=== PATIENT | female | born 1965 | race Two or more races ===

== ENCOUNTER 2024-11-08 09:42 | Emergency (ER) | payer BC, SELFPAY ==
[2024-11-08 09:43] VITALS: BMI 27.8
[2024-11-08 09:59] VITALS: BP 158/88; PULSE 73; RESP 18; TEMP 36.6; O2SAT 98
--- NOTE | 2024-11-08 10:09 | XR_ITS ---
Examination: CT brain head without contrast. 2-D sagittal coronal reconstructions Date and time of exam:November 08, 2024 1020 hours INDICATIONS: Right-sided headaches and dizziness today COMPARISON: July 06, 2020 CTDI: vol (mGy):45 DLP: (mGycm):858 Technique: Multiple CT axial sections of the brain have been obtained, 5 mm slice thickness. Contrast has not been administered. 2-D sagittal, coronal reconstructions have been obtained Low dose protocols were performed. One or more of the following dose reduction techniques were used; automated exposure control, adjustment of the mA and/or KV according to patient size, use of iterative reconstruction technique. Findings: No significant ventricular enlargement. Intra-axial or extra-axial hemorrhage density is not seen. No mass effect or midline shift Basal cisterns are not remarkable. Fourth ventricle is midline. Cranial vault intact. Impression: Negative for acute hemorrhage, mass effect or midline shift Advise, clinical correlation follow-up accordingly
--- NOTE | 2024-11-08 10:10 | PD.EDRME ---
Rapid Medical Screening Exam RME Arrival date/time: 11/08/24 09:42 59-year-old female with a history of hyperlipidemia presents to the emergency room with a chief complaint of a 10 out of 10 right-sided headache x 2 days I have greeted and performed a focused initial assessment of this patient. A comprehensive ED assessment and evaluation of the patient, analysis of all test results, and completion of the medical decision making process will be conducted by additional ED providers. Chief Complaint: Headache Time Seen by Provider: 11/08/24 09:58 Vital signs: Vital Signs Temperature 97.8 F 11/08/24 09:59 Pulse Rate 73 11/08/24 09:59 Respiratory Rate 18 11/08/24 09:59 Blood Pressure 158/88 H 11/08/24 09:59 Pulse Oximetry (%) 98 11/08/24 09:59 Oxygen Delivery Method Room Air 11/08/24 09:59 Vital signs reviewed by provider: Yes
[2024-11-08 11:01] LABS: Collection Type, Urine Clean Catch
[2024-11-08 11:16] LABS: Basophils # (Auto) 0.0 Thou/mm3 (0.0-0.2); Basophils % (Auto) 1 % (0-2.5); Eosinophils # (Auto) 0.1 Thou/mm3 (0.0-0.5); Eosinophils % (Auto) 1 % (0-10); Hematocrit 43.8 % (36.0-46.0); Hemoglobin 14.5 g/dL (12.0-16.0); Immature Granulocytes Auto 0.01 Thou/mm3 (0.00-0.00); Lymphocytes # (Auto) 1.9 Thou/mm3 (1.0-4.8); Lymphocytes % (Auto) 33 % (10-50); Mean Corpuscular HGB Conc 33.1 g/dl (31.0-37.0); Mean Corpuscular Hemoglobin 29.2 pg (25.0-35.0); Mean Corpuscular Volume 88 fL (80-100); Monocytes # (Auto) 0.2 Thou/mm3 (0.0-0.8); Monocytes % (Auto) 4 % (0-12); Neutrophils # (Auto) 3.6 Thou/mm3 (1.8-7.7); Neutrophils % (Auto) 61 % (37-80); Nucleated Red Blood Cell # 0.00 Thou/mm3 (0.00-0.00); Nucleated Red Blood Cell % 0 /100 WBC (0); Platelet Count 318 Thou/mm3 (140-440); RDW Standard Deviation 43.5 fL (36.4-46.3); Red Blood Count 4.96 Miln/mm3 (4.00-5.20); White Blood Count 5.8 Thou/mm3 (3.6-11.0)
[2024-11-08 11:23] LABS: Alanine Aminotransferase 10 U/L (10-49); Albumin, Serum 4.5 gm/dL (3.4-4.8); Albumin/Globulin Ratio 1.9 (1.2-2.2); Alkaline Phosphatase 61 U/L (46-116); Anion Gap 10 (7-16); Aspartate Amino Transferase 18 U/L (0-34); BUN/Creatinine Ratio 10 Ratio (12-20); Bilirubin,Total 0.6 mg/dL (0.3-1.2); Blood Urea Nitrogen 6 mg/dL (9-23); Calcium 9.6 mg/dL (8.3-10.6); Calcium (Corrected) 9.6 mg/dL (8.5-10.1); Carbon Dioxide 25.4 mMol/L (20.0-31.0); Chloride 108 mMol/L (98-107); Creatinine (Component) 0.6 mg/dL (0.6-1.3); Estimated Creatinine Clearance 94.3 mL/min (>60); Globulin 2.4 gm/dL (2.3-3.5); Glucose 98 mg/dL (74-106); Osmolality,Calculated 282 (275-295); Potassium 4.0 mMol/L (3.4-5.1); Sodium 143 mMol/L (136-145); Total Protein 6.9 gm/dL (5.7-8.2); eGFR > 60 See Note
[2024-11-08 11:24] LABS: Bilirubin,Urine Negative (Negative); Blood,Urine Trace (Negative); Clarity,Urine Clear (Clear/Hazy); Color,Urine Lt-Yellow (Lt Yel-Yel); Culture Indicated,Urine Not Indicated; Glucose, Urine Negative (Negative); Ketones,Urine Negative (Negative); Leukocyte Esterase,Urine Positive (Negative); Nitrite,Urine Negative (Negative); PH,Urine 6.0 (5.0-7.0); Protein,Urine Negative (Neg - Trace); RBC,Urine < 1 /hpf (0-3); Specific Gravity,Urine 1.014 (1.001-1.035); Squamous Epithelial Cell,Urine 1 /hpf (0-5); Urobilinogen,Urine Negative mg/dL (0.0-1.0); WBC,Urine 3 /hpf (0-5)
--- NOTE | 2024-11-08 12:14 | EDNOTE_ITS ---
<Statement entered by Flakita Mendoza MD - 11/08/24 14:39> As co-signing physician, I was present and available for consult prn. I concur with the plan and care as documented by the midlevel provider. ED General RME/HPI General Chief complaint: Headache Stated complaint: PERRY SINCE YESTERDAY, C/O PRESSURE IN HEAD Time Seen by Provider: 11/08/24 09:58 Arrival date/time: 11/08/24 09:42 CC: Right sided headache onset yesterday with mild improvement with Tylenol also admitting to facial pain with coldness on one side and heat on the other denies any blurred vision seeing spots shortness of breath difficulty breathing complaining of mild neck pain as well. No active vomiting. RME / HPI RME / HPI narrative: 11/08/24 09:42 59-year-old female with a history of hyperlipidemia presents to the emergency room with a chief complaint of a 10 out of 10 right-sided headache x 2 days I have greeted and performed a focused initial assessment of this patient. A comprehensive ED assessment and evaluation of the patient, analysis of all test results, and completion of the medical decision making process will be conducted by additional ED providers. Related Data Home Medications ?Medication ?Instructions ?Recorded ?Confirmed alendronate 70 mg tablet 70 mg PO QWEEK 12/26/2103/28 atorvastatin 20 mg tablet 20 mg PO QDAY 12/26/2104/22 calcium 600 mg (as 1 tab PO QDAY 12/26/2104/22 carbonate)-vitamin D3 10 mcg (400 unit) tablet (Calcium 600 + D(3)) ondansetron 4 mg disintegrating 4 mg PO Q6H PRN Nausea 12/26/21 04/22/22 tablet gabapentin 300 mg capsule 300 mg PO TID 04/22/2204/22 Previous Rx's ?Medication ?Instructions ?Recorded docusate sodium 100 mg capsule 100 mg PO BID #40 caps 04/23/22 (Colace) hydrocodone 5 mg-acetaminophen 325 1 tab PO Q6H PRN pa in (scale score 04/23/22 mg tablet 7-10) #20 tabs ibuprofen 600 mg tablet 600 mg PO Q8H PRN pain (scal e 04/23/22 score 4-6) #15 tabs meloxicam 7.5 mg tablet 7.5 mg PO QDAY #10 tabs 10/25 07/18 ondansetron 4 mg disintegrating 4 mg PO Q8H #10 tabs 0 11/08/24 tablet Allergies Allergy/AdvReac Type Severity Reaction Status Date / Time No Known Allergies Allergy Verified 11/08/24 09:45 Review of Systems Review of Systems Narrative Review of Systems: GEN: No fever, no chills, no weight loss EYES: No discharge, no visual changes, no pain HEENT: No ear pain, no congestion, no sore throat PULM: No shortness of breath, no cough, no congestion CV: No chest pain, no dyspnea on exertion, no palpitations GI: N+ nausea, no vomiting, no diarrhea, no pain, no constipation : No frequency, no urgency, no dysuria MUSC/SKEL: No joint pain, no back pain SKIN: No rash PSYCH: No hallucinations, no depression HEME/LYMPH: No easy bleeding or bruising tendencies NEURO: No weakness, + headache Past Medical History Past Medical History NEUROLOGIC: Negative Neurological Disorders or Seizures CARDIAC: Positive Cardiac Disorders and Hypercholesterolemia; Negative Congestive Heart Failure RESPIRATORY: Negative Chronic Obstructive Pulmonary Disease (COPD) GASTROINTESTINAL: Positive Gastrointestinal Disorders and Gastroesophageal Reflux Disease GENITOURINARY: Negative Genitourinary Disorders or Renal Disease REPRODUCTIVE: Positive Previous Pregnancies MUSCULOSKELETAL: Positive Musculoskeletal Disorders and Arthritis ENDOCRINE: Negative Endocrine Disorders, Diabetes Mellitus Type 1 or Diabetes Mellitus Type 2 HEMATOLOGIC: Negative Blood Disorders OTHER HISTORY: Positive Anesthesia Reactions (Woke up during surgery); Negative Hospitalization, Autoimmune Disease, Shingles, Falls, Blood Transfusions, Blood Transfusion Reaction, MRSA, Chicken Pox, Measles, Mumps, Rubella (Portuguese Measles) or Cancer Family History FAMILY HISTORY: Positive Family Cancer (mother-uterine cancer) and Family Surgery (mother-hysterectomy); Negative Family Psychiatric Problems, Family Respiratory Disorders, Family Cardiac Disorders, Family Gastrointestinal Problems or Family Anesthesia Reaction Surgical History SURGICAL: Positive Hysterectomy and Section (x3); Negative Cardiac Surgery, Endocrine Surgery, Ear Surgery or Joint Replacement Social History SMOKING STATUS: Never smoker ED Exam Narrative Physical exam: [General: Not in any acute distress Head normocephalic HEENT: Eyes pupils are PERRLA EOMs are intact mouth pink moist membranes uvula is midline swallow symmetrical phonation is normal. Nose no rhinorrhea all of the subsystems of HEENT are within acceptable limits Neck is supple nontender Chest equal chest rise nontender to palpation Respiratory: Clear to auscultation no wheezes crackles or rubs CV: Rate rhythm is regular no murmurs rubs or clicks Abdomen is soft nontender no masses positive bowel sounds all 4 quadrants Back: No CVA tenderness no spinous process tenderness from cervical spine thoracic and lumbar spine Skin: Intact no petechiae rash induration ulceration or crepitus Extremities: Moving all extremity against resistance cap refill less than 2 seconds neurosensory intact Neuro: Awake alert oriented x3 Glascow coma 15 no focal deficits] Course Quality Measures none Orders Category Date Time Status Bedside COVID-19 Antigen Test NOW Care 11/08/24 10:09 Active Bedside Influenza A&B Antigen Test NOW Care 11/08/24 10:[address] head/brain wo con Stat Exams 11/08/24 10:09 Completed CBC Stat Lab 11/08/24 10:40 Completed CMP [Comprehensive Metabolic Panel] Stat Lab 11/08/24 10:40 Completed UA, C/S IF [Urinalysis, C/S if Indicated] Stat Lab 11/08/24 10:53 Completed Vital Signs Vital signs: Vital Signs Temperature 97.8 F 11/08/24 09:59 Pulse Rate 73 11/08/24 09:59 Respiratory Rate 18 11/08/24 09:59 Blood Pressure 158/88 H 11/08/24 09:59 Pulse Oximetry (%) 98 11/08/24 09:59 Oxygen Delivery Method Room Air 11/08/24 09:59 Discharge Plan Plan Patient Disposition: HOME (Self Care) Patient condition on transfer: Stable Prescriptions/Referrals Prescriptions/Med Rec: New meloxicam 7.5 mg tablet 7.5 mg PO QDAY Qty: 10 0RF ondansetron 4 mg tablet,disintegrating 4 mg PO Q8H Qty: 10 0RF No Action atorvastatin 20 mg Tablet 20 mg PO QDAY alendronate 70 mg Tablet 70 mg PO QWEEK ondansetron 4 mg Tablet,Disintegrating 4 mg PO Q6H PRN (Reason: Nausea) calcium carbonate-vitamin D3 [Calcium 600 + D(3)] 600 mg-10 mcg (400 unit) Tablet 1 tab PO QDAY gabapentin 300 mg Capsule 300 mg PO TID hydrocodone-acetaminophen 5-325 mg tablet 1 tab PO Q6H MDD 4 PRN (Reason: pain (scale score 7-10)) Qty: 20 0RF ibuprofen 600 mg tablet 600 mg PO Q8H PRN (Reason: pain (scale score 4-6)) Qty: 15 0RF docusate sodium [Colace] 100 mg capsule 100 mg PO BID Qty: 40 0RF Referrals: Rj Bridges [Primary Care Provider] - In 1 week Problem List Clinical Impression: Headache, Nausea Patient/Caregiver Discharge Instructions Education Materials: Self-Care for Headaches Print Language: Malay Stand Alone Forms: Heydi Award Info., Patient Portal Info Letter, Work/School Release PA/MOLD SHAKER Supervising Physician PA/MOLD SHAKER Supervising Physician: Santiago Kendrick ENP [facility] Clinical Information Provided by patient Medical Records Reviewed [facility] Meds/Rx Considered, not Ordered None Labs/Rad/Tests considered, not Ordered None Chronic Illness/Social Conditions which may negatively complicate care or outcome(s)-explain: None or not applicable EKG EKG not done Lab Interpretation Labs: interpreted by me Lab(s) interpretation(s): CBC shows no acute leukocytosis anemia thrombocytopenia CMP shows chloride of 108 BUN of 6 no other electrolyte imbalances renal impa irment transaminitis or T. bili elevation Urine is negative for UTI. Imaging Imaging interpretation: interpreted by me Provider imaging interpretation(s): CT of the head is interpreted by me read by radiology is negative for any acute finding requires emergent immediate intervention. Medication Administration(s) none Diagnosis Differential diagnosis: Migraine tension headache cluster headache Most likely dx, and/or detailed dx discussion: Headache Dispositon Disposition: Discharge Home
== END 2024-11-08 12:29 | disposition home or self-care (01) ==
PROVIDERS: Nurse Practitioner Family; Emergency Provider Emergency Medicine; PCP Family Medicine
DX: R51.9 Headache, unspecified (principal); R11.0 Nausea; R42 Dizziness and giddiness
CPT/HCPCS: 36415; 70450; 80053; 81001; 85025; 87400; 87811; 99284